=== PATIENT | male | born 1935 | race Caucasian/White ===

== ENCOUNTER 2018-08-29 20:37 | Inpatient (IN) ==
[2018-08-29 21:44] LABS: Basophils % 0.2 % (0.0-0.8); Eosinophils # 0.1 10*3/uL (0.0-0.87); Eosinophils % 1.3 % (0.00-10.9); Hematocrit 21.2 VOL% (42.0-52.0); Hemoglobin 6.8 GM/DL (14.0-18.0); Immature Granulocytes % 0.5 %; Immature Granulocytes Absolute 0.03 #; Lymphocytes # 0.6 10*3/uL (1.4-4.0); Lymphocytes % 8.6 % (21.2-54.2); Mean Corpuscular HGB Conc 32.1 GM/DL (32-36); Mean Corpuscular Hemoglobin 28 PG (27-34); Mean Corpuscular Volume 88.3 FL (87-102); Monocytes # 0.4 10*3/uL (0.11-0.8); Monocytes % 6.4 % (1.7-12.7); Neutrophils # 5.3 10*3/uL (1.4-7.4); Platelet Count 171 T/CUMM (130-400); Red Cell Distribution Width 14.3 % (9.3-17.3); White Blood Count 6.4 T/CUMM (4-12)
[2018-08-29 21:53] LABS: INR 1.3; PT Patient Result 13.5 SECS
[2018-08-29] MEDS ORDERED: DILTIAZEM 25 MG/5 ML VIAL IV ONE ×2 (22:01→22:21)
[2018-08-29] MEDS ORDERED: DILTIAZEM 50 MG/10 ML VIAL IV STA (22:03)
[2018-08-29] MEDS ORDERED: PANTOPRAZOLE 40 MG VIAL IV STA (22:04)
[2018-08-29 22:05] LABS: Alanine Aminotransferase 17 U/L (16-61); Albumin 3.5 G/DL (3.4-5.0); Alkaline Phosphatase 89 U/L (45-117); Aspartate Amino Transferase 11 U/L (0-37); Bilirubin,Total < 0.39 MG/DL (0.2-1.0); Blood Urea Nitrogen 28 MG/DL (7-18); Calcium 8.5 MG/DL (8.5-10.1); Glucose 229 MG/DL (74-106); Osmolality,Calculated 282.1 MOS/KG (273-304); Potassium 4.6 MMOL/L (3.5-5.1); Sodium 135 MMOL/L (136-145); Total Protein 6.6 G/DL (6.4-8.3); Troponin I < 0.015 NG/ML (0.00-0.045)
[2018-08-29 22:17] LABS: Prolactin 14.9 NG/ML
[2018-08-29] MEDS ORDERED: MAGNESIUM SULF RIDER 2 GM in PREMIX 1 EACH IV STA (22:24)
[2018-08-29] MEDS: dilTIAZem Drip 125 MG/125 ML PREMIX IV SCH (22:48)
[2018-08-29 23:19] LABS: Apearance,Urine CLEAR (Clear); Bilirubin,Urine Negative (Negative); Blood, Urine Negative (Negative); Glucose,Urine (UA) 150 mg/dL (Negative); Hyaline Casts,Urine 29 /LPF (0-3); Ketones,Urine Negative (Negative); Mucus,Urine Occasional /LPF (Occasional); Nitrite,Urine Negative (Negative); Protein,Urine Negative; RBC,Urine <1 /HPF (0-4); Urine Color Yellow (Yellow); Urine Specific Gravity 1.016 (1.001-1.035); Urine Urobilinogen < 2.0 EU/DL (0.2-1.0); WBC,Urine <1 /HPF (0-6)
[2018-08-30] MEDS ORDERED: ACETAMINOPHEN 325 MG TABLET PO PRN (00:31)
[2018-08-30] MEDS ORDERED: DEXTROSE 50% 25 GM/50 ML VIAL IV PRN (00:31)
[2018-08-30] MEDS ORDERED: ONDANSETRON 4 MG/2 ML VIAL IV PRN (00:31)
[2018-08-30] MEDS ORDERED: SODIUM CHLORIDE 0.9% 1,000 ML IV PRN (00:31)
[2018-08-30] MEDS ORDERED: GLUCAGON 1 MG VIAL IM PRN (00:31)
[2018-08-30] MEDS ORDERED: MORPHINE 4 MG/1 ML VIAL IV PRN (00:31)
[2018-08-30 02:16] LABS: Basophils % 0.3 % (0.0-0.8); Eosinophils # 0.2 10*3/uL (0.0-0.87); Eosinophils % 2.5 % (0.00-10.9); Hematocrit 22.6 VOL% (42.0-52.0); Hemoglobin 7.3 GM/DL (14.0-18.0); Immature Granulocytes % 0.5 %; Immature Granulocytes Absolute 0.03 #; Lymphocytes # 1.2 10*3/uL (1.4-4.0); Lymphocytes % 18.2 % (21.2-54.2); Mean Corpuscular HGB Conc 32.3 GM/DL (32-36); Mean Corpuscular Hemoglobin 28 PG (27-34); Mean Corpuscular Volume 86.9 FL (87-102); Mean Platelet Volume 10.2 FL (9.6-12.0); Monocytes # 0.6 10*3/uL (0.11-0.8); Monocytes % 8.7 % (1.7-12.7); Neutrophils # 4.5 10*3/uL (1.4-7.4); Neutrophils % 69.8 % (38.7-73.9); Platelet Count 217 T/CUMM (130-400); Red Cell Distribution Width 14.4 % (9.3-17.3); White Blood Count 6.4 T/CUMM (4-12)
[2018-08-30] MEDS: INSULIN REGULAR 100 UNIT/ML SUBCUT SCH ×5 (02:45→23:40)
[2018-08-30] MEDS: SODIUM CHLORIDE 0.9% 1,000 ML IV SCH ×4 (02:46→23:40)
[2018-08-30] MEDS ORDERED: FUROSEMIDE 20 MG/2 ML VIAL IV ONE (05:24)
[2018-08-30] MEDS: LEVOTHYROXINE 50 MCG TABLET PO SCH (06:18)
[2018-08-30 08:28] LABS: Hematocrit 29.7 VOL% (42.0-52.0); Hemoglobin 9.7 GM/DL (14.0-18.0)
[2018-08-30] MEDS ORDERED: CHOLECALCIFEROL 1,000 UNIT TABLET PO SCH (09:00)
[2018-08-30] MEDS ORDERED: DOCUSATE SODIUM 100 MG CAPSULE PO SCH (09:00)
[2018-08-30 09:05] LABS: Albumin 3.3 G/DL (3.4-5.0); Bilirubin,Total 0.4 MG/DL (0.2-1.0); Calcium 8.1 MG/DL (8.5-10.1); Osmolality,Calculated 280.7 MOS/KG (273-304); Risk Ratio 2.39; Total Protein 6.5 G/DL (6.4-8.3); VLDL CHOLESTEROL 32.8 MG/DL
[2018-08-30] MEDS: PANTOPRAZOLE 40 MG VIAL IV SCH (09:59)
[2018-08-30] MEDS: dilTIAZem Drip 125 MG/125 ML PREMIX IV SCH ×2 (12:10→22:13)
[2018-08-30] MEDS: FUROSEMIDE 20 MG TABLET PO SCH (13:26)
[2018-08-30] MEDS: FLUTICASONE 50 MCG NASAL SPRAY 16 GM BOTTLE BOTH NARES SCH (13:26)
[2018-08-30] MEDS: MULTIVITAMIN (CENTRUM) TABLET PO SCH (13:26)
[2018-08-30] MEDS: OMEGA 3 ACID ETHYL ESTERS 1 GM CAPSULE PO SCH (13:26)
[2018-08-30] MEDS: ATORVASTATIN 40 MG TABLET PO SCH (13:26)
[2018-08-30] MEDS: LATANOPROST 0.005% OPH SOLN 2.5 ML BOTTLE BOTH EYES SCH (20:50)
[2018-08-31] MEDS: INSULIN REGULAR 100 UNIT/ML SUBCUT SCH ×4 (05:54→23:58)
[2018-08-31] MEDS: LEVOTHYROXINE 50 MCG TABLET PO SCH (05:54)
[2018-08-31] MEDS: SODIUM CHLORIDE 0.9% 1,000 ML IV SCH ×2 (09:49→22:01)
[2018-08-31] MEDS: MULTIVITAMIN (CENTRUM) TABLET PO SCH (09:49)
[2018-08-31] MEDS: FUROSEMIDE 20 MG TABLET PO SCH (09:51)
[2018-08-31] MEDS: ATORVASTATIN 40 MG TABLET PO SCH (09:51)
[2018-08-31] MEDS: OMEGA 3 ACID ETHYL ESTERS 1 GM CAPSULE PO SCH (09:52)
[2018-08-31] MEDS: PANTOPRAZOLE 40 MG VIAL IV SCH (09:52)
[2018-08-31] MEDS: FLUTICASONE 50 MCG NASAL SPRAY 16 GM BOTTLE BOTH NARES SCH (10:06)
[2018-08-31] MEDS: LATANOPROST 0.005% OPH SOLN 2.5 ML BOTTLE BOTH EYES SCH ×2 (10:21→22:00)
[2018-08-31] MEDS: dilTIAZem Drip 125 MG/125 ML PREMIX IV SCH (11:33)
[2018-08-31] MEDS ORDERED: LORazepam 2 MG/1 ML VIAL IV PRN (16:40)
[2018-08-31] MEDS ORDERED: CLORAZEPATE 7.5 MG TABLET PO SCH (21:00)
[2018-09-01] MEDS: dilTIAZem Drip 125 MG/125 ML PREMIX IV SCH (01:21)
[2018-09-01 04:41] LABS: Basophils % 0.4 % (0.0-0.8); Eosinophils # 0.3 10*3/uL (0.0-0.87); Hematocrit 27.6 VOL% (42.0-52.0); Hemoglobin 8.7 GM/DL (14.0-18.0); Immature Granulocytes % 0.4 %; Immature Granulocytes Absolute 0.02 #; Lymphocytes # 0.9 10*3/uL (1.4-4.0); Lymphocytes % 15.7 % (21.2-54.2); Mean Corpuscular HGB Conc 31.5 GM/DL (32-36); Mean Corpuscular Hemoglobin 28 PG (27-34); Mean Corpuscular Volume 87.3 FL (87-102); Mean Platelet Volume 10.3 FL (9.6-12.0); Monocytes # 0.6 10*3/uL (0.11-0.8); Monocytes % 10.5 % (1.7-12.7); Neutrophils # 3.8 10*3/uL (1.4-7.4); Platelet Count 179 T/CUMM (130-400); Red Blood Count 3.16 MC/CUMM (3.8-5.5); White Blood Count 5.6 T/CUMM (4-12)
[2018-09-01 05:08] LABS: Calcium 8.1 MG/DL (8.5-10.1); Osmolality,Calculated 278.5 MOS/KG (273-304); Potassium 3.9 MMOL/L (3.5-5.1)
[2018-09-01] MEDS: INSULIN REGULAR 100 UNIT/ML SUBCUT SCH ×3 (06:20→17:33)
[2018-09-01] MEDS: LEVOTHYROXINE 50 MCG TABLET PO SCH (06:39)
[2018-09-01] MEDS: SODIUM CHLORIDE 0.9% 1,000 ML IV SCH (08:46)
[2018-09-01] MEDS: FUROSEMIDE 20 MG TABLET PO SCH (08:47)
[2018-09-01] MEDS: ATORVASTATIN 40 MG TABLET PO SCH (08:47)
[2018-09-01] MEDS: OMEGA 3 ACID ETHYL ESTERS 1 GM CAPSULE PO SCH (08:47)
[2018-09-01] MEDS: MULTIVITAMIN (CENTRUM) TABLET PO SCH (08:47)
[2018-09-01] MEDS: METOPROLOL SUCCINATE XL 100 MG TABLET PO SCH (08:48)
[2018-09-01] MEDS: PANTOPRAZOLE 40 MG VIAL IV SCH (08:49)
[2018-09-01] MEDS: FLUTICASONE 50 MCG NASAL SPRAY 16 GM BOTTLE BOTH NARES SCH (08:52)
[2018-09-01] MEDS ORDERED: POLYETHYLENE GLYCOL POWDER 255 GM BOTTLE PO ONE (15:00)
[2018-09-01] MEDS: LATANOPROST 0.005% OPH SOLN 2.5 ML BOTTLE BOTH EYES SCH (21:04)
[2018-09-02] MEDS: INSULIN REGULAR 100 UNIT/ML SUBCUT SCH ×5 (00:30→23:45)
[2018-09-02] MEDS ORDERED: MAGNESIUM CITRATE 300 ML BOTTLE PO ONE (05:00)
[2018-09-02] MEDS: LEVOTHYROXINE 50 MCG TABLET PO SCH (05:55)
[2018-09-02] MEDS: ATORVASTATIN 40 MG TABLET PO SCH (08:25)
[2018-09-02] MEDS: OMEGA 3 ACID ETHYL ESTERS 1 GM CAPSULE PO SCH (08:25)
[2018-09-02] MEDS: METOPROLOL SUCCINATE XL 100 MG TABLET PO SCH (08:25)
[2018-09-02] MEDS: MULTIVITAMIN (CENTRUM) TABLET PO SCH (08:25)
[2018-09-02] MEDS: FUROSEMIDE 20 MG TABLET PO SCH (08:26)
[2018-09-02] MEDS: PANTOPRAZOLE 40 MG VIAL IV SCH (08:27)
[2018-09-02] MEDS: FLUTICASONE 50 MCG NASAL SPRAY 16 GM BOTTLE BOTH NARES SCH (08:30)
[2018-09-02] MEDS ORDERED: LIDOCAINE 100 MG/5 ML SYRINGE ONE ×2 (09:00→11:59)
[2018-09-02] MEDS ORDERED: PHENYLEPHRINE 1 MG/10 ML SYRINGE IV ONE (09:00)
[2018-09-02] MEDS ORDERED: PROPOFOL 200 MG/20 ML VIAL IV ONE ×2 (09:00→11:59)
[2018-09-02] MEDS: SODIUM CHLORIDE 0.9% 1,000 ML IV SCH ×2 (09:55→20:54)
[2018-09-02 11:16] LABS: Hematocrit 32.6 VOL% (42.0-52.0); Hemoglobin 10.2 GM/DL (14.0-18.0)
[2018-09-02] MEDS: LATANOPROST 0.005% OPH SOLN 2.5 ML BOTTLE BOTH EYES SCH (20:53)
[2018-09-03] MEDS: INSULIN REGULAR 100 UNIT/ML SUBCUT SCH (05:07)
[2018-09-03] MEDS: LEVOTHYROXINE 50 MCG TABLET PO SCH (05:35)
[2018-09-03 08:15] VITALS: BP 125/79
[2018-09-03] MEDS: FLUTICASONE 50 MCG NASAL SPRAY 16 GM BOTTLE BOTH NARES SCH (08:15)
[2018-09-03] MEDS: ATORVASTATIN 40 MG TABLET PO SCH (08:15)
[2018-09-03] MEDS: OMEGA 3 ACID ETHYL ESTERS 1 GM CAPSULE PO SCH (08:15)
[2018-09-03] MEDS: FUROSEMIDE 20 MG TABLET PO SCH (08:15)
[2018-09-03] MEDS: METOPROLOL SUCCINATE XL 100 MG TABLET PO SCH (08:15)
[2018-09-03] MEDS: MULTIVITAMIN (CENTRUM) TABLET PO SCH (08:15)
[2018-09-03] MEDS: PANTOPRAZOLE 40 MG VIAL IV SCH (08:16)
[2018-09-03] MEDS: SODIUM CHLORIDE 0.9% 1,000 ML IV SCH (10:49)
== END 2018-09-03 10:59 | disposition home or self-care (01) | DRG 813 ==
LOC: EDUNIT# → EDBD → N.ED 20:37 → N.EDINP 23:10 → N.ICU 08-30 00:56 → N.TELES 09-01 15:27
PROVIDERS: ADMIT Family Medicine; ATTEND Family Medicine
PROC: COLSIRP (2018-09-02 11:50)

== ENCOUNTER 2019-10-05 11:18 | Observation (INO) ==
[2019-10-05] MEDS ORDERED: GLUCAGON 1 MG VIAL IM PRN (12:32)
[2019-10-05] MEDS ORDERED: DEXTROSE 10% 25 GM/250 ML BAG IV PRN (12:32)
[2019-10-05] MEDS ORDERED: ACETAMINOPHEN 325 MG TABLET PO PRN (12:32)
[2019-10-05] MEDS ORDERED: ONDANSETRON 4 MG/2 ML VIAL IV PRN (12:32)
[2019-10-05] MEDS ORDERED: MECLIZINE 25 MG TABLET PO PRN (12:36)
[2019-10-05 13:04] LABS: Basophils % 0.5 % (0.0-0.8); Eosinophils # 0.1 10*3/uL (0.0-0.87); Hematocrit 39.1 VOL% (42.0-52.0); Hemoglobin 13.4 GM/DL (14.0-18.0); Immature Granulocytes % 0.2 %; Immature Granulocytes Absolute 0.01 #; Lymphocytes # 1.1 10*3/uL (1.4-4.0); Lymphocytes % 18.2 % (21.2-54.2); Mean Corpuscular HGB Conc 34.3 GM/DL (32-36); Mean Corpuscular Volume 93.8 FL (87-102); Mean Platelet Volume 10.7 FL (9.6-12.0); Monocytes % 7.3 % (1.7-12.7); Neutrophils % 72.8 % (38.7-73.9); Platelet Count 186 T/CUMM (130-400); Red Blood Count 4.17 MC/CUMM (3.8-5.5); Red Cell Distribution Width 13.6 % (9.3-17.3); White Blood Count 5.8 T/CUMM (4-12)
[2019-10-05 13:18] LABS: Osmolality,Calculated 281.1 MOS/KG (273-304)
[2019-10-05] MEDS: SODIUM CHLORIDE 0.45% 1,000 ML IV SCH (14:56)
[2019-10-05] MEDS: POTASSIUM CHLORIDE 8 MEQ CAPSULE PO SCH ×2 (16:14→21:16)
[2019-10-05] MEDS: FERROUS SULFATE 325 MG TABLET PO SCH (16:14)
[2019-10-05] MEDS: INSULIN LISPRO 100 UNIT/ML SUBCUT SCH ×2 (16:17→21:25)
[2019-10-05] MEDS: METOPROLOL SUCCINATE XL 100 MG TABLET PO SCH (17:23)
[2019-10-05] MEDS: metFORMIN 500 MG TABLET PO SCH (21:16)
[2019-10-05] MEDS: POTASSIUM GLUCONATE 500 MG TABLET PO SCH (21:16)
[2019-10-05] MEDS: LATANOPROST 0.005% OPH SOLN 2.5 ML BOTTLE BOTH EYES SCH (21:17)
[2019-10-05] MEDS: DOCUSATE SODIUM 100 MG CAPSULE PO SCH (21:21)
[2019-10-06] MEDS ORDERED: DIAZEPAM 5 MG TABLET PO PRN (00:46)
[2019-10-06 06:07] LABS: Calcium 6.7 MG/DL (8.5-10.1)
[2019-10-06 06:09] LABS: Risk Ratio 2.98; VLDL CHOLESTEROL 22.8 MG/DL
[2019-10-06] MEDS ORDERED: MAGNESIUM SULF RIDER 2 GM in PREMIX 1 EACH IV PRN (07:24)
[2019-10-06] MEDS: INSULIN LISPRO 100 UNIT/ML SUBCUT SCH ×4 (07:40→22:02)
[2019-10-06 08:03] LABS: Parathyroid Hormone Intact 31.5 PG/ML (18.4-80.1)
[2019-10-06] MEDS: metFORMIN 500 MG TABLET PO SCH ×2 (09:20→20:18)
[2019-10-06] MEDS: FERROUS SULFATE 325 MG TABLET PO SCH ×2 (09:20→17:01)
[2019-10-06] MEDS: RIVAROXABAN 20 MG TABLET PO SCH (09:20)
[2019-10-06] MEDS: LOSARTAN 50 MG TABLET PO SCH (09:21)
[2019-10-06] MEDS: MULTIVITAMIN (CENTRUM) TABLET PO SCH (09:21)
[2019-10-06] MEDS: METOPROLOL SUCCINATE XL 100 MG TABLET PO SCH (09:21)
[2019-10-06] MEDS: DOCUSATE SODIUM 100 MG CAPSULE PO SCH ×2 (09:21→20:19)
[2019-10-06] MEDS: LEVOTHYROXINE 50 MCG TABLET PO SCH (09:21)
[2019-10-06] MEDS: PIOGLITAZONE 15 MG TABLET PO SCH (09:21)
[2019-10-06] MEDS: FUROSEMIDE 20 MG TABLET PO SCH (09:21)
[2019-10-06] MEDS: CHOLECALCIFEROL 1,000 UNIT TABLET PO SCH (09:22)
[2019-10-06] MEDS: POTASSIUM GLUCONATE 500 MG TABLET PO SCH ×2 (09:22→20:18)
[2019-10-06] MEDS: ATORVASTATIN 40 MG TABLET PO SCH (09:22)
[2019-10-06] MEDS: PANTOPRAZOLE 40 MG TABLET PO SCH (09:22)
[2019-10-06] MEDS: POTASSIUM CHLORIDE 8 MEQ CAPSULE PO SCH ×3 (09:22→20:18)
[2019-10-06] MEDS: MAGNESIUM SULF RIDER 4 GM in PREMIX 1 EACH IV PRN (09:29)
[2019-10-06] MEDS: FLUTICASONE 50 MCG NASAL SPRAY 16 GM BOTTLE BOTH NARES SCH (09:52)
[2019-10-06] MEDS: POTASSIUM CHLORIDE RIDER 10 MEQ in PREMIX 1 EACH IV PRN ×4 (17:01→20:21)
[2019-10-06] MEDS: SODIUM CHLORIDE 0.45% 1,000 ML IV SCH (17:02)
[2019-10-06] MEDS: CALCIUM CARBONATE CHEW 500 MG TABLET PO SCH (20:19)
[2019-10-06] MEDS: LATANOPROST 0.005% OPH SOLN 2.5 ML BOTTLE BOTH EYES SCH (20:19)
[2019-10-07 02:02] LABS: Calcium 6.9 MG/DL (8.5-10.1); Osmolality,Calculated 276.5 MOS/KG (273-304)
[2019-10-07] MEDS: LEVOTHYROXINE 50 MCG TABLET PO SCH (06:09)
[2019-10-07] MEDS: INSULIN LISPRO 100 UNIT/ML SUBCUT SCH ×4 (07:04→21:57)
[2019-10-07] MEDS: CALCIUM CARBONATE CHEW 500 MG TABLET PO SCH ×2 (08:31→21:56)
[2019-10-07] MEDS: RIVAROXABAN 20 MG TABLET PO SCH (08:31)
[2019-10-07] MEDS: POTASSIUM GLUCONATE 500 MG TABLET PO SCH ×2 (08:31→21:57)
[2019-10-07] MEDS: LOSARTAN 50 MG TABLET PO SCH (08:32)
[2019-10-07] MEDS: MULTIVITAMIN (CENTRUM) TABLET PO SCH (08:32)
[2019-10-07] MEDS: ATORVASTATIN 40 MG TABLET PO SCH (08:32)
[2019-10-07] MEDS: PIOGLITAZONE 15 MG TABLET PO SCH (08:32)
[2019-10-07] MEDS: METOPROLOL SUCCINATE XL 100 MG TABLET PO SCH (08:32)
[2019-10-07] MEDS: PANTOPRAZOLE 40 MG TABLET PO SCH (08:32)
[2019-10-07] MEDS: POTASSIUM CHLORIDE 8 MEQ CAPSULE PO SCH ×3 (08:32→21:57)
[2019-10-07] MEDS: FUROSEMIDE 20 MG TABLET PO SCH (08:32)
[2019-10-07] MEDS: FERROUS SULFATE 325 MG TABLET PO SCH ×2 (08:32→16:58)
[2019-10-07] MEDS: metFORMIN 500 MG TABLET PO SCH ×2 (08:33→21:57)
[2019-10-07] MEDS: DOCUSATE SODIUM 100 MG CAPSULE PO SCH ×2 (08:33→21:57)
[2019-10-07] MEDS: FLUTICASONE 50 MCG NASAL SPRAY 16 GM BOTTLE BOTH NARES SCH (08:33)
[2019-10-07] MEDS: CHOLECALCIFEROL 1,000 UNIT TABLET PO SCH (08:33)
[2019-10-07] MEDS: MAGNESIUM SULF RIDER 4 GM in PREMIX 1 EACH IV PRN (08:39)
[2019-10-07] MEDS: cefTRIAXone 1,000 MG in SYRINGE 1 EACH IV SCH (11:11)
[2019-10-07] MEDS: methylPREDNISolone SOD SUC 40 MG/1 ML VIAL IV SCH ×2 (13:12→21:57)
[2019-10-07] MEDS: SODIUM CHLORIDE 0.45% 1,000 ML IV SCH (16:57)
[2019-10-07] MEDS: LATANOPROST 0.005% OPH SOLN 2.5 ML BOTTLE BOTH EYES SCH (21:57)
[2019-10-08 05:43] LABS: Basophils % 0.1 % (0.0-0.8); Hematocrit 43.4 VOL% (42.0-52.0); Hemoglobin 14.4 GM/DL (14.0-18.0); Immature Granulocytes % 0.4 %; Immature Granulocytes Absolute 0.03 #; Lymphocytes # 0.7 10*3/uL (1.4-4.0); Lymphocytes % 8.7 % (21.2-54.2); Mean Corpuscular HGB Conc 33.2 GM/DL (32-36); Mean Corpuscular Volume 95.2 FL (87-102); Mean Platelet Volume 11.4 FL (9.6-12.0); Monocytes % 2.2 % (1.7-12.7); Neutrophils % 88.6 % (38.7-73.9); Platelet Count 235 T/CUMM (130-400); Red Blood Count 4.56 MC/CUMM (3.8-5.5); Red Cell Distribution Width 13.4 % (9.3-17.3); White Blood Count 7.4 T/CUMM (4-12)
[2019-10-08] MEDS: LEVOTHYROXINE 50 MCG TABLET PO SCH (05:55)
[2019-10-08 06:14] LABS: Calcium 7.7 MG/DL (8.5-10.1); Osmolality,Calculated 275.8 MOS/KG (273-304)
[2019-10-08] MEDS: POTASSIUM GLUCONATE 500 MG TABLET PO SCH (09:07)
[2019-10-08] MEDS: LOSARTAN 50 MG TABLET PO SCH (09:07)
[2019-10-08] MEDS: METOPROLOL SUCCINATE XL 100 MG TABLET PO SCH (09:08)
[2019-10-08] MEDS: FERROUS SULFATE 325 MG TABLET PO SCH (09:08)
[2019-10-08] MEDS: DOCUSATE SODIUM 100 MG CAPSULE PO SCH (09:08)
[2019-10-08] MEDS: FUROSEMIDE 20 MG TABLET PO SCH (09:08)
[2019-10-08] MEDS: PANTOPRAZOLE 40 MG TABLET PO SCH (09:08)
[2019-10-08] MEDS: metFORMIN 500 MG TABLET PO SCH (09:08)
[2019-10-08] MEDS: PIOGLITAZONE 15 MG TABLET PO SCH (09:08)
[2019-10-08] MEDS: CHOLECALCIFEROL 1,000 UNIT TABLET PO SCH (09:08)
[2019-10-08] MEDS: ATORVASTATIN 40 MG TABLET PO SCH (09:09)
[2019-10-08] MEDS: RIVAROXABAN 20 MG TABLET PO SCH (09:09)
[2019-10-08] MEDS: MULTIVITAMIN (CENTRUM) TABLET PO SCH (09:09)
[2019-10-08] MEDS: POTASSIUM CHLORIDE 8 MEQ CAPSULE PO SCH (09:09)
[2019-10-08] MEDS: CALCIUM CARBONATE CHEW 500 MG TABLET PO SCH (09:09)
[2019-10-08] MEDS: cefTRIAXone 1,000 MG in SYRINGE 1 EACH IV SCH (09:15)
[2019-10-08] MEDS: FLUTICASONE 50 MCG NASAL SPRAY 16 GM BOTTLE BOTH NARES SCH (09:16)
[2019-10-08] MEDS: INSULIN LISPRO 100 UNIT/ML SUBCUT SCH ×2 (09:39→11:37)
[2019-10-08] MEDS ORDERED: CEFDINIR 300 MG CAPSULE PO SCH (11:00)
[2019-10-08 11:57] VITALS: BP 146/99
== END 2019-10-08 12:32 | disposition home or self-care (01) ==
LOC: N.ED 11:18 → INTOOBSV 12:54 → N.EDINP 12:54 → N.2E 14:27
PROVIDERS: ADMIT Family Medicine; ATTEND Family Medicine

== ENCOUNTER 2020-11-14 01:42 | Observation (INO) ==
[2020-11-14 02:10] LABS: Basophils % 0.6 % (0.0-0.8); Eosinophils # 0.4 10*3/uL (0.0-0.87); Eosinophils % 5.4 % (0.00-10.9); Hematocrit 38.8 VOL% (42.0-52.0); Hemoglobin 12.9 GM/DL (14.0-18.0); Immature Granulocytes % 0.3 %; Immature Granulocytes Absolute 0.02 #; Lymphocytes # 1.2 10*3/uL (1.4-4.0); Lymphocytes % 16.6 % (21.2-54.2); Mean Corpuscular HGB Conc 33.2 GM/DL (32-36); Mean Corpuscular Volume 92.6 FL (87-102); Neutrophils % 69.1 % (38.7-73.9); Platelet Count 251 T/CUMM (130-400); Red Blood Count 4.19 MC/CUMM (3.8-5.5); Red Cell Distribution Width 13.7 % (9.3-17.3); White Blood Count 7.2 T/CUMM (4-12)
[2020-11-14] MEDS ORDERED: ASPIRIN 325 MG TABLET PO STA (02:32)
[2020-11-14] MEDS ORDERED: NITROGLYCERIN SL 0.4 MG TABLET SL STA ×2 (02:32→03:53)
[2020-11-14 02:56] LABS: Albumin 3.9 G/DL (3.4-5.0); Bilirubin,Total 0.5 MG/DL (0.2-1.0); Calcium 6.7 MG/DL (8.5-10.1); Potassium 2.9 MMOL/L (3.5-5.1); Total Protein 7.5 G/DL (6.4-8.3)
[2020-11-14] MEDS ORDERED: POTASSIUM CHLORIDE 20 MEQ/15 ML UDCUP PO ONE (03:43)
[2020-11-14] MEDS ORDERED: MORPHINE 4 MG/1 ML VIAL IV STA (03:53)
[2020-11-14] MEDS ORDERED: ONDANSETRON 4 MG/2 ML VIAL IV ONE (03:53)
[2020-11-14] MEDS ORDERED: ONDANSETRON 4 MG/2 ML VIAL IV PRN (03:57)
[2020-11-14] MEDS ORDERED: ASPIRIN CHEW 81 MG TABLET PO SCH (04:00)
[2020-11-14] MEDS ORDERED: DILTIAZEM 50 MG/10 ML VIAL IV STA (04:43)
[2020-11-14] MEDS ORDERED: PANTOPRAZOLE 40 MG TABLET PO SCH ×2 (09:00→21:00)
[2020-11-14 12:29] VITALS: BP 130/83
[2020-11-14] MEDS ORDERED: LOSARTAN 50 MG TABLET PO SCH (13:00)
[2020-11-14] MEDS ORDERED: METOPROLOL SUCCINATE XL 100 MG TABLET PO SCH (13:00)
[2020-11-14] MEDS ORDERED: ATORVASTATIN 40 MG TABLET PO SCH (13:00)
[2020-11-14] MEDS ORDERED: FUROSEMIDE 20 MG TABLET PO SCH (13:00)
[2020-11-15] MEDS ORDERED: RIVAROXABAN 20 MG TABLET PO SCH (09:00)
== END 2020-11-14 15:17 | disposition home or self-care (01) ==
LOC: N.ED 01:42 → N.EDINP 01:42 → N.TELES 05:49
PROVIDERS: ADMIT Family Medicine; ATTEND Family Medicine

== ENCOUNTER 2022-01-18 00:31 | Observation (INO) ==
[2022-01-18] MEDS ORDERED: ALBUTEROL/IPRATROPIUM 3 ML NEB RESP TX STA (01:28)
[2022-01-18] MEDS ORDERED: methylPREDNISolone SOD SUC 125 MG/2 ML VIAL IV STA (01:28)
[2022-01-18] MEDS ORDERED: MORPHINE 2 MG/1 ML SYRINGE IV STA (01:28)
[2022-01-18] MEDS ORDERED: ONDANSETRON 4 MG/2 ML VIAL IV STA (01:28)
[2022-01-18] MEDS ORDERED: FUROSEMIDE 100 MG/10 ML VIAL IV STA (01:28)
[2022-01-18] MEDS ORDERED: cefTRIAXone 1,000 MG in SODIUM CHLORIDE 0.9% 100 ML IV STA (01:30)
[2022-01-18 01:36] LABS: Basophils # 0.1 10*3/uL (0.0-0.2); Basophils % 0.7 % (0.0-0.8); Eosinophils # 0.8 10*3/uL (0.0-0.87); Eosinophils % 10.8 % (0.00-10.9); Hematocrit 30.4 VOL% (42.0-52.0); Immature Granulocytes % 0.4 %; Immature Granulocytes Absolute 0.03 #; Lymphocytes # 1.1 10*3/uL (1.4-4.0); Lymphocytes % 14.6 % (21.2-54.2); Mean Corpuscular HGB Conc 32.9 GM/DL (32-36); Mean Corpuscular Volume 95.6 FL (87-102); Monocytes % 7.3 % (1.7-12.7); Neutrophils % 66.2 % (38.7-73.9); Platelet Count 248 T/CUMM (130-400); Red Blood Count 3.18 MC/CUMM (3.8-5.5); Red Cell Distribution Width 14.3 % (9.3-17.3); White Blood Count 7.2 T/CUMM (4-12)
[2022-01-18 01:47] LABS: INR 1.2; Partial Thromboplastin Time 30.8 SECS (23.8-32.1)
[2022-01-18] MEDS ORDERED: MAGNESIUM SULF RIDER 2 GM/50 ML PREMIX IV STA (02:11)
[2022-01-18 02:20] LABS: Albumin 3.7 G/DL (3.4-5.0); Bilirubin,Total 0.6 MG/DL (0.20-1.00); Calcium 8.5 MG/DL (8.5-10.1); Potassium 3.7 MMOL/L (3.5-5.1); Total Protein 6.8 G/DL (6.4-8.2)
[2022-01-18 02:53] LABS: Bilirubin,Urine Negative (Negative); Blood, Urine Negative (Negative); Glucose,Urine (UA) Negative (Negative); Ketones,Urine Negative (Negative); Nitrite,Urine Negative (Negative); Protein,Urine Negative (Negative); Urine Appearance Clear (Clear); Urine Color Yellow (Yellow); Urine Urobilinogen 0.2 eU/dL (<2.0); Urine pH 5.5 (4.5-8.0)
[2022-01-18] MEDS ORDERED: GLUCAGON 1 MG VIAL IM PRN (04:37)
[2022-01-18] MEDS ORDERED: MORPHINE 2 MG/1 ML SYRINGE IV PRN (04:37)
[2022-01-18] MEDS ORDERED: ONDANSETRON 4 MG/2 ML VIAL IV PRN (04:37)
[2022-01-18] MEDS ORDERED: ACETAMINOPHEN 325 MG TABLET PO PRN (04:37)
[2022-01-18] MEDS ORDERED: DEXTROSE 10% 250 ML BAG IV PRN (04:41)
[2022-01-18] MEDS: SODIUM CHLORIDE 0.9% 1,000 ML IV SCH (05:31)
[2022-01-18] MEDS: INSULIN REGULAR 100 UNIT/ML SUBCUT SCH ×3 (05:58→17:40)
[2022-01-18] MEDS ORDERED: CHOLECALCIFEROL 1,000 UNIT TABLET PO SCH (09:00)
[2022-01-18] MEDS ORDERED: PANTOPRAZOLE 40 MG VIAL IV SCH (09:00)
[2022-01-18] MEDS ORDERED: METOPROLOL SUCCINATE 200 MG PO SCH (09:00)
[2022-01-18] MEDS ORDERED: CALCIUM CARBONATE CHEW 500 MG TABLET PO SCH (09:00)
[2022-01-18] MEDS ORDERED: LOSARTAN 50 MG TABLET PO SCH (09:00)
[2022-01-18] MEDS ORDERED: metFORMIN 500 MG TABLET PO SCH (09:00)
[2022-01-18] MEDS: ALBUTEROL/IPRATROPIUM 3 ML NEB RESP TX SCH ×5 (09:22→23:52)
[2022-01-18] MEDS: FUROSEMIDE 40 MG/4 ML VIAL IV SCH ×2 (09:36→16:34)
[2022-01-18] MEDS: DOCUSATE SODIUM 100 MG CAPSULE PO SCH ×2 (09:37→21:10)
[2022-01-18 09:39] LABS: Calcium 9.4 MG/DL (8.5-10.1); Osmolality,Calculated 276.2 MOS/KG (273-304); Potassium 4.4 MMOL/L (3.5-5.1)
[2022-01-18] MEDS: PIOGLITAZONE 15 MG TABLET PO SCH (10:44)
[2022-01-18] MEDS: RIVAROXABAN 20 MG TABLET PO SCH (13:32)
[2022-01-18] MEDS: methylPREDNISolone SOD SUC 40 MG/1 ML VIAL IV SCH (14:48)
[2022-01-18] MEDS ORDERED: LATANOPROST 0.005% OPH SOLN 2.5 ML BOTTLE BOTH EYES SCH (21:00)
[2022-01-18] MEDS: POTASSIUM CHLORIDE 10 MEQ TABLET PO SCH (21:10)
[2022-01-18] MEDS: FERROUS SULFATE 325 MG TABLET PO SCH (21:10)
[2022-01-18] MEDS: LATANOPROST 0.005% OPH SOLN 2.5 ML BOTTLE BOTH EYES SCH (21:11)
[2022-01-19] MEDS: INSULIN REGULAR 100 UNIT/ML SUBCUT SCH ×4 (00:20→18:01)
[2022-01-19] MEDS: ALBUTEROL/IPRATROPIUM 3 ML NEB RESP TX SCH ×5 (03:30→19:55)
[2022-01-19 05:29] LABS: Basophils % 0.1 % (0.0-0.8); Hemoglobin 10.4 GM/DL (14.0-18.0); Immature Granulocytes % 0.4 %; Immature Granulocytes Absolute 0.05 #; Lymphocytes # 0.5 10*3/uL (1.4-4.0); Lymphocytes % 3.9 % (21.2-54.2); Mean Corpuscular HGB Conc 32.5 GM/DL (32-36); Mean Platelet Volume 10.2 FL (9.6-12.0); Monocytes % 6.6 % (1.7-12.7); Platelet Count 242 T/CUMM (130-400); White Blood Count 12.2 T/CUMM (4-12)
[2022-01-19 05:48] LABS: Albumin 3.4 G/DL (3.4-5.0); Bilirubin,Total 0.4 MG/DL (0.20-1.00); Calcium 8.9 MG/DL (8.5-10.1); Osmolality,Calculated 275.4 MOS/KG (273-304); Potassium 3.8 MMOL/L (3.5-5.1); Total Protein 7.3 G/DL (6.4-8.2)
[2022-01-19] MEDS: methylPREDNISolone SOD SUC 40 MG/1 ML VIAL IV SCH ×2 (05:57→18:01)
[2022-01-19] MEDS: LEVOTHYROXINE 50 MCG TABLET PO SCH (05:58)
[2022-01-19 06:07] LABS: Hypochromia Slight; Lymphocytes 3 % (20-55); Microcytosis 1+; Ovalocytes Slight; Segmented Neutrophils 91 % (50-85); Total Cells Counted 100
[2022-01-19 06:08] LABS: Platelet Estimate Normal
[2022-01-19] MEDS ORDERED: LEVOTHYROXINE 50 MCG TABLET PO SCH (07:00)
[2022-01-19] MEDS: SODIUM CHLORIDE 0.9% 1,000 ML IV SCH (07:58)
[2022-01-19] MEDS: FUROSEMIDE 40 MG TABLET PO SCH (08:48)
[2022-01-19] MEDS: DOCUSATE SODIUM 100 MG CAPSULE PO SCH ×2 (08:48→21:33)
[2022-01-19] MEDS: ATORVASTATIN 40 MG TABLET PO SCH (08:48)
[2022-01-19] MEDS: PIOGLITAZONE 15 MG TABLET PO SCH (08:48)
[2022-01-19] MEDS: FERROUS SULFATE 325 MG TABLET PO SCH ×2 (08:48→21:33)
[2022-01-19] MEDS: POTASSIUM CHLORIDE 10 MEQ TABLET PO SCH ×2 (08:48→21:33)
[2022-01-19] MEDS: FLUTICASONE 50 MCG NASAL SPRAY 16 GM BOTTLE BOTH NARES SCH (08:49)
[2022-01-19] MEDS: RIVAROXABAN 20 MG TABLET PO SCH (08:49)
[2022-01-19] MEDS: cefTRIAXone 1,000 MG in SODIUM CHLORIDE 0.9% 100 ML IV SCH (08:49)
[2022-01-19] MEDS: FUROSEMIDE 40 MG/4 ML VIAL IV SCH (09:06)
[2022-01-19] MEDS ORDERED: METOPROLOL SUCCINATE XL 25 MG TABLET PO SCH (11:30)
[2022-01-19] MEDS: METOPROLOL SUCCINATE XL 100 MG TABLET PO SCH (12:04)
[2022-01-19] MEDS ORDERED: METOPROLOL TARTRATE 5 MG/5 ML VIAL IV ONE (14:00)
[2022-01-19] MEDS: LATANOPROST 0.005% OPH SOLN 2.5 ML BOTTLE BOTH EYES SCH (22:33)
[2022-01-20] MEDS: ALBUTEROL/IPRATROPIUM 3 ML NEB RESP TX SCH ×3 (00:13→07:46)
[2022-01-20] MEDS: INSULIN REGULAR 100 UNIT/ML SUBCUT SCH ×4 (00:45→17:44)
[2022-01-20 05:15] LABS: Basophils % 0.1 % (0.0-0.8); Hematocrit 34.3 VOL% (42.0-52.0); Hemoglobin 11.1 GM/DL (14.0-18.0); Immature Granulocytes Absolute 0.12 #; Lymphocytes # 0.6 10*3/uL (1.4-4.0); Lymphocytes % 4.6 % (21.2-54.2); Mean Corpuscular HGB Conc 32.4 GM/DL (32-36); Mean Corpuscular Volume 97.7 FL (87-102); Monocytes % 5.5 % (1.7-12.7); Neutrophils % 88.8 % (38.7-73.9); Platelet Count 268 T/CUMM (130-400); Red Blood Count 3.51 MC/CUMM (3.8-5.5); Red Cell Distribution Width 14.6 % (9.3-17.3)
[2022-01-20 05:38] LABS: Calcium 8.8 MG/DL (8.5-10.1); Osmolality,Calculated 280.1 MOS/KG (273-304); Potassium 4.4 MMOL/L (3.5-5.1)
[2022-01-20] MEDS: methylPREDNISolone SOD SUC 40 MG/1 ML VIAL IV SCH ×2 (06:14→17:44)
[2022-01-20] MEDS: FLUTICASONE 50 MCG NASAL SPRAY 16 GM BOTTLE BOTH NARES SCH (09:46)
[2022-01-20] MEDS: METOPROLOL SUCCINATE XL 100 MG TABLET PO SCH (09:47)
[2022-01-20] MEDS: POTASSIUM CHLORIDE 10 MEQ TABLET PO SCH ×2 (09:47→20:21)
[2022-01-20] MEDS: FUROSEMIDE 40 MG TABLET PO SCH (09:48)
[2022-01-20] MEDS: DILTIAZEM CD 120 MG CAPSULE PO SCH (09:48)
[2022-01-20] MEDS: PIOGLITAZONE 15 MG TABLET PO SCH (09:48)
[2022-01-20] MEDS: DOCUSATE SODIUM 100 MG CAPSULE PO SCH ×2 (09:49→20:21)
[2022-01-20] MEDS: FERROUS SULFATE 325 MG TABLET PO SCH ×2 (09:49→20:21)
[2022-01-20] MEDS: ATORVASTATIN 40 MG TABLET PO SCH (09:49)
[2022-01-20] MEDS: RIVAROXABAN 20 MG TABLET PO SCH (09:50)
[2022-01-20] MEDS: cefTRIAXone 1,000 MG in SODIUM CHLORIDE 0.9% 100 ML IV SCH (09:51)
[2022-01-20] MEDS: LEVALBUTEROL 1.25 MG/3 ML NEB RESP TX SCH ×4 (11:23→23:45)
[2022-01-20] MEDS: LATANOPROST 0.005% OPH SOLN 2.5 ML BOTTLE BOTH EYES SCH (20:24)
[2022-01-21] MEDS: PANTOPRAZOLE 40 MG TABLET PO SCH ×2 (00:12→05:44)
[2022-01-21] MEDS: LEVOTHYROXINE 50 MCG TABLET PO SCH ×2 (00:12→05:44)
[2022-01-21] MEDS: INSULIN REGULAR 100 UNIT/ML SUBCUT SCH ×2 (00:15→05:46)
[2022-01-21] MEDS: LEVALBUTEROL 1.25 MG/3 ML NEB RESP TX SCH ×3 (04:40→11:27)
[2022-01-21] MEDS: methylPREDNISolone SOD SUC 40 MG/1 ML VIAL IV SCH (05:48)
[2022-01-21 06:03] LABS: Basophils % 0.1 % (0.0-0.8); Hematocrit 35.7 VOL% (42.0-52.0); Hemoglobin 11.5 GM/DL (14.0-18.0); Immature Granulocytes % 0.7 %; Immature Granulocytes Absolute 0.06 #; Lymphocytes # 0.6 10*3/uL (1.4-4.0); Lymphocytes % 6.4 % (21.2-54.2); Mean Corpuscular HGB Conc 32.2 GM/DL (32-36); Mean Corpuscular Volume 96.7 FL (87-102); Monocytes % 6.8 % (1.7-12.7); Platelet Count 277 T/CUMM (130-400); Red Blood Count 3.69 MC/CUMM (3.8-5.5); Red Cell Distribution Width 14.5 % (9.3-17.3); White Blood Count 8.8 T/CUMM (4-12)
[2022-01-21 06:26] LABS: Calcium 9.1 MG/DL (8.5-10.1); Potassium 4.4 MMOL/L (3.5-5.1)
[2022-01-21] MEDS: FLUTICASONE 50 MCG NASAL SPRAY 16 GM BOTTLE BOTH NARES SCH (09:49)
[2022-01-21] MEDS: FERROUS SULFATE 325 MG TABLET PO SCH (09:49)
[2022-01-21] MEDS: PIOGLITAZONE 15 MG TABLET PO SCH (09:49)
[2022-01-21] MEDS: POTASSIUM CHLORIDE 10 MEQ TABLET PO SCH (09:50)
[2022-01-21] MEDS: DOCUSATE SODIUM 100 MG CAPSULE PO SCH (09:50)
[2022-01-21] MEDS: DILTIAZEM CD 120 MG CAPSULE PO SCH (09:50)
[2022-01-21] MEDS: FUROSEMIDE 40 MG TABLET PO SCH (09:50)
[2022-01-21] MEDS: RIVAROXABAN 20 MG TABLET PO SCH (09:50)
[2022-01-21] MEDS: METOPROLOL SUCCINATE XL 100 MG TABLET PO SCH (09:50)
[2022-01-21] MEDS: ATORVASTATIN 40 MG TABLET PO SCH (09:51)
[2022-01-21] MEDS: cefTRIAXone 1,000 MG in SODIUM CHLORIDE 0.9% 100 ML IV SCH (10:06)
[2022-01-21 13:03] VITALS: BP 150/93
== END 2022-01-21 13:20 | disposition home or self-care (01) ==
LOC: N.ED 00:31 → N.EDINP 00:31 → N.5E 05:17
PROVIDERS: ADMIT Family Medicine; ATTEND Family Medicine

== ENCOUNTER 2022-05-23 15:19 | Inpatient (IN) ==
[2022-05-23 16:32] LABS: Basophils % 0.5 % (0.0-0.8); Eosinophils # 0.2 10*3/uL (0.0-0.87); Eosinophils % 3.2 % (0.00-10.9); Hematocrit 40.8 VOL% (42.0-52.0); Hemoglobin 13.9 GM/DL (14.0-18.0); Immature Granulocytes % 0.3 %; Immature Granulocytes Absolute 0.02 #; Lymphocytes # 1.3 10*3/uL (1.4-4.0); Lymphocytes % 17.1 % (21.2-54.2); Mean Corpuscular HGB Conc 34.1 GM/DL (32-36); Mean Corpuscular Volume 89.1 FL (87-102); Mean Platelet Volume 10.3 FL (9.6-12.0); Monocytes # 0.6 10*3/uL (0.11-0.8); Monocytes % 8.1 % (1.7-12.7); Neutrophils % 70.8 % (38.7-73.9); Platelet Count 232 T/CUMM (130-400); Red Blood Count 4.58 MC/CUMM (3.8-5.5); Red Cell Distribution Width 14.4 % (9.3-17.3); White Blood Count 7.4 T/CUMM (4-12)
[2022-05-23 17:09] LABS: Albumin 3.9 G/DL (3.4-5.0); Bilirubin,Total 0.8 MG/DL (0.20-1.00); Calcium 6.5 MG/DL (8.5-10.1); Osmolality,Calculated 271.1 MOS/KG (273-304); Potassium 2.7 MMOL/L (3.5-5.1); Total Protein 7.1 G/DL (6.4-8.2)
[2022-05-23 19:21] LABS: Bilirubin,Urine Negative (Negative); Blood, Urine Negative (Negative); Glucose,Urine (UA) Negative (Negative); Ketones,Urine Negative (Negative); Nitrite,Urine Negative (Negative); Protein,Urine Negative (Negative); Urine Appearance Clear (Clear); Urine Color Yellow (Yellow); Urine Urobilinogen 0.2 eU/dL (<2.0)
[2022-05-23 19:30] LABS: Bacteria,Urine Occasional /HPF (Few); Squamous Epithelial Cell,Urine Occasional /HPF (0-10)
[2022-05-23] MEDS ORDERED: POTASSIUM CHLORIDE 20 MEQ TABLET PO STA (19:44)
[2022-05-23] MEDS ORDERED: MAGNESIUM SULF RIDER 2 GM/50 ML PREMIX IV STA (19:44)
[2022-05-23] MEDS ORDERED: CALCIUM GLUCONATE RIDER 1,000 MG/50 ML PREMIX IV ONE (19:44)
[2022-05-23] MEDS ORDERED: SODIUM CHLORIDE 0.9% 1,000 ML IV STA (19:57)
[2022-05-23 22:06] LABS: Parathyroid Hormone Intact 47.9 PG/ML (18.4-80.1)
[2022-05-23] MEDS ORDERED: ACETAMINOPHEN 325 MG TABLET PO PRN (22:35)
[2022-05-23] MEDS ORDERED: ONDANSETRON 4 MG/2 ML VIAL IV PRN (22:35)
[2022-05-23] MEDS ORDERED: GLUCAGON 1 MG VIAL IM PRN (22:35)
[2022-05-23] MEDS ORDERED: DEXTROSE 10% 250 ML BAG IV PRN (22:50)
[2022-05-23] MEDS: INSULIN REGULAR 100 UNIT/ML SUBCUT SCH (23:53)
[2022-05-23] MEDS: SODIUM CHLORIDE 0.9% 1,000 ML IV SCH (23:53)
[2022-05-23] MEDS: DOCUSATE SODIUM 100 MG CAPSULE PO SCH (23:54)
[2022-05-24 05:07] LABS: Calcium 6.3 MG/DL (8.5-10.1); Osmolality,Calculated 280.3 MOS/KG (273-304); Potassium 2.8 MMOL/L (3.5-5.1)
[2022-05-24] MEDS ORDERED: POTASSIUM CHLORIDE 20 MEQ TABLET PO PRN (06:44)
[2022-05-24] MEDS ORDERED: MAGNESIUM SULF RIDER 4 GM/100 ML PREMIX IV STA (07:51)
[2022-05-24] MEDS: ATORVASTATIN 40 MG TABLET PO SCH (08:41)
[2022-05-24] MEDS: METOPROLOL SUCCINATE XL 100 MG TABLET PO SCH (08:41)
[2022-05-24] MEDS: DOCUSATE SODIUM 100 MG CAPSULE PO SCH ×2 (08:41→21:35)
[2022-05-24] MEDS: PIOGLITAZONE 15 MG TABLET PO SCH (08:41)
[2022-05-24] MEDS: PANTOPRAZOLE 40 MG TABLET PO SCH (08:41)
[2022-05-24] MEDS: RIVAROXABAN 20 MG TABLET PO SCH (08:41)
[2022-05-24] MEDS: FLUTICASONE 50 MCG NASAL SPRAY 16 GM BOTTLE BOTH NARES SCH (08:42)
[2022-05-24 10:38] LABS: Calcium 6.6 MG/DL (8.5-10.1); Osmolality,Calculated 280.4 MOS/KG (273-304); Potassium 3.6 MMOL/L (3.5-5.1)
[2022-05-24] MEDS: ALBUTEROL/IPRATROPIUM 3 ML NEB RESP TX SCH ×5 (11:20→23:49)
[2022-05-24] MEDS: INSULIN REGULAR 100 UNIT/ML SUBCUT SCH ×4 (12:26→21:36)
[2022-05-24] MEDS: MAGNESIUM OXIDE 400 MG TABLET PO SCH (21:35)
[2022-05-24] MEDS: LATANOPROST 0.005% OPH SOLN 2.5 ML BOTTLE BOTH EYES SCH (21:40)
[2022-05-25] MEDS: SODIUM CHLORIDE 0.9% 1,000 ML IV SCH ×4 (02:17→17:03)
[2022-05-25 04:30] LABS: Calcium 6.6 MG/DL (8.5-10.1); Osmolality,Calculated 275.7 MOS/KG (273-304); Potassium 2.6 MMOL/L (3.5-5.1)
[2022-05-25] MEDS: ALBUTEROL/IPRATROPIUM 3 ML NEB RESP TX SCH ×6 (04:59→23:57)
[2022-05-25] MEDS: POTASSIUM CHLORIDE RIDER 10 MEQ/100 ML PREMIX IV PRN ×5 (05:19→16:25)
[2022-05-25] MEDS: PANTOPRAZOLE 40 MG TABLET PO SCH (09:42)
[2022-05-25] MEDS: DOCUSATE SODIUM 100 MG CAPSULE PO SCH ×2 (09:42→21:42)
[2022-05-25] MEDS: CALCIUM CARBONATE CHEW 500 MG TABLET PO SCH ×2 (09:42→21:42)
[2022-05-25] MEDS: RIVAROXABAN 20 MG TABLET PO SCH (09:43)
[2022-05-25] MEDS: ATORVASTATIN 40 MG TABLET PO SCH (09:43)
[2022-05-25] MEDS: MAGNESIUM OXIDE 400 MG TABLET PO SCH ×2 (09:43→21:42)
[2022-05-25] MEDS: LEVOTHYROXINE 50 MCG TABLET PO SCH (09:43)
[2022-05-25] MEDS: PIOGLITAZONE 15 MG TABLET PO SCH (09:43)
[2022-05-25] MEDS: METOPROLOL SUCCINATE XL 100 MG TABLET PO SCH (09:43)
[2022-05-25] MEDS: POTASSIUM CHLORIDE 20 MEQ TABLET PO SCH ×2 (09:43→21:41)
[2022-05-25] MEDS: INSULIN REGULAR 100 UNIT/ML SUBCUT SCH ×4 (09:47→21:42)
[2022-05-25] MEDS: FLUTICASONE 50 MCG NASAL SPRAY 16 GM BOTTLE BOTH NARES SCH (09:50)
[2022-05-25] MEDS: LATANOPROST 0.005% OPH SOLN 2.5 ML BOTTLE BOTH EYES SCH (21:42)
[2022-05-26] MEDS: SODIUM CHLORIDE 0.9% 1,000 ML IV SCH ×3 (01:50→21:37)
[2022-05-26 05:08] LABS: Calcium 6.2 MG/DL (8.5-10.1); Osmolality,Calculated 280.3 MOS/KG (273-304); Potassium 3.7 MMOL/L (3.5-5.1)
[2022-05-26] MEDS ORDERED: MAGNESIUM SULF RIDER 2 GM/50 ML PREMIX IV STA (05:13)
[2022-05-26] MEDS: ALBUTEROL/IPRATROPIUM 3 ML NEB RESP TX SCH ×5 (07:15→23:50)
[2022-05-26] MEDS: PIOGLITAZONE 15 MG TABLET PO SCH (08:56)
[2022-05-26] MEDS: POTASSIUM CHLORIDE 20 MEQ TABLET PO SCH ×2 (08:56→21:36)
[2022-05-26] MEDS: PANTOPRAZOLE 40 MG TABLET PO SCH (08:56)
[2022-05-26] MEDS: MAGNESIUM OXIDE 400 MG TABLET PO SCH ×2 (08:56→21:36)
[2022-05-26] MEDS: METOPROLOL SUCCINATE XL 100 MG TABLET PO SCH (08:56)
[2022-05-26] MEDS: ATORVASTATIN 40 MG TABLET PO SCH (08:57)
[2022-05-26] MEDS: DOCUSATE SODIUM 100 MG CAPSULE PO SCH ×2 (08:57→21:35)
[2022-05-26] MEDS: RIVAROXABAN 20 MG TABLET PO SCH (08:57)
[2022-05-26] MEDS: INSULIN REGULAR 100 UNIT/ML SUBCUT SCH ×4 (09:15→21:35)
[2022-05-26] MEDS: FLUTICASONE 50 MCG NASAL SPRAY 16 GM BOTTLE BOTH NARES SCH (11:21)
[2022-05-26] MEDS: CALCIUM CARBONATE CHEW 500 MG TABLET PO SCH ×2 (12:44→21:36)
[2022-05-26] MEDS: LEVOTHYROXINE 50 MCG TABLET PO SCH (12:46)
[2022-05-26] MEDS: LATANOPROST 0.005% OPH SOLN 2.5 ML BOTTLE BOTH EYES SCH (21:38)
[2022-05-27] MEDS: ALBUTEROL/IPRATROPIUM 3 ML NEB RESP TX SCH ×6 (03:18→23:30)
[2022-05-27] MEDS: SODIUM CHLORIDE 0.9% 1,000 ML IV SCH ×4 (05:47→21:47)
[2022-05-27] MEDS: LEVOTHYROXINE 50 MCG TABLET PO SCH (06:11)
[2022-05-27] MEDS ORDERED: MAGNESIUM SULF RIDER 2 GM/50 ML PREMIX IV PRN (07:55)
[2022-05-27] MEDS: INSULIN REGULAR 100 UNIT/ML SUBCUT SCH ×4 (09:24→21:46)
[2022-05-27] MEDS: CALCIUM CARBONATE CHEW 500 MG TABLET PO SCH ×2 (09:48→21:39)
[2022-05-27] MEDS: FLUTICASONE 50 MCG NASAL SPRAY 16 GM BOTTLE BOTH NARES SCH (09:48)
[2022-05-27] MEDS: METOPROLOL SUCCINATE XL 100 MG TABLET PO SCH (09:48)
[2022-05-27] MEDS: MAGNESIUM OXIDE 400 MG TABLET PO SCH ×2 (09:48→21:39)
[2022-05-27] MEDS: DOCUSATE SODIUM 100 MG CAPSULE PO SCH ×2 (09:48→21:40)
[2022-05-27] MEDS: RIVAROXABAN 20 MG TABLET PO SCH (09:49)
[2022-05-27] MEDS: POTASSIUM CHLORIDE 20 MEQ TABLET PO SCH ×2 (09:49→21:39)
[2022-05-27] MEDS: ATORVASTATIN 40 MG TABLET PO SCH (09:49)
[2022-05-27] MEDS: PIOGLITAZONE 15 MG TABLET PO SCH (09:49)
[2022-05-27] MEDS: PANTOPRAZOLE 40 MG TABLET PO SCH (11:51)
[2022-05-27] MEDS: FAMOTIDINE 20 MG TABLET PO SCH (21:40)
[2022-05-27] MEDS: LATANOPROST 0.005% OPH SOLN 2.5 ML BOTTLE BOTH EYES SCH (21:58)
[2022-05-28] MEDS: SODIUM CHLORIDE 0.9% 1,000 ML IV SCH (05:31)
[2022-05-28] MEDS: ALBUTEROL/IPRATROPIUM 3 ML NEB RESP TX SCH ×6 (07:08→19:53)
[2022-05-28 08:28] LABS: Calcium 8.9 MG/DL (8.5-10.1); Osmolality,Calculated 267.1 MOS/KG (273-304); Potassium 5.2 MMOL/L (3.5-5.1)
[2022-05-28] MEDS: LEVOTHYROXINE 50 MCG TABLET PO SCH (08:56)
[2022-05-28] MEDS: FLUTICASONE 50 MCG NASAL SPRAY 16 GM BOTTLE BOTH NARES SCH (08:56)
[2022-05-28] MEDS: DOCUSATE SODIUM 100 MG CAPSULE PO SCH ×2 (08:57→20:14)
[2022-05-28] MEDS: CALCIUM CARBONATE CHEW 500 MG TABLET PO SCH ×2 (08:57→20:14)
[2022-05-28] MEDS: PIOGLITAZONE 15 MG TABLET PO SCH (08:57)
[2022-05-28] MEDS: ATORVASTATIN 40 MG TABLET PO SCH (08:57)
[2022-05-28] MEDS: RIVAROXABAN 20 MG TABLET PO SCH (08:57)
[2022-05-28] MEDS: MAGNESIUM OXIDE 400 MG TABLET PO SCH ×2 (08:58→20:14)
[2022-05-28] MEDS: METOPROLOL SUCCINATE XL 100 MG TABLET PO SCH (08:58)
[2022-05-28] MEDS: INSULIN REGULAR 100 UNIT/ML SUBCUT SCH ×4 (08:58→20:14)
[2022-05-28] MEDS: POTASSIUM CHLORIDE 20 MEQ TABLET PO SCH ×2 (09:00→20:14)
[2022-05-28] MEDS ORDERED: amLODIPine 10 MG TABLET PO SCH (16:30)
[2022-05-28] MEDS: LATANOPROST 0.005% OPH SOLN 2.5 ML BOTTLE BOTH EYES SCH (20:14)
[2022-05-28] MEDS: FAMOTIDINE 20 MG TABLET PO SCH (20:14)
[2022-05-29] MEDS: ALBUTEROL/IPRATROPIUM 3 ML NEB RESP TX SCH ×5 (01:06→19:46)
[2022-05-29] MEDS ORDERED: amLODIPine 5 MG TABLET PO SCH (09:00)
[2022-05-29] MEDS: POTASSIUM CHLORIDE 20 MEQ TABLET PO SCH ×2 (09:15→21:28)
[2022-05-29] MEDS: MAGNESIUM OXIDE 400 MG TABLET PO SCH ×2 (09:15→21:28)
[2022-05-29] MEDS: PIOGLITAZONE 15 MG TABLET PO SCH (09:15)
[2022-05-29] MEDS: CALCIUM CARBONATE CHEW 500 MG TABLET PO SCH ×2 (09:15→21:29)
[2022-05-29] MEDS: LEVOTHYROXINE 50 MCG TABLET PO SCH (09:16)
[2022-05-29] MEDS: FUROSEMIDE 20 MG TABLET PO SCH (09:16)
[2022-05-29] MEDS: RIVAROXABAN 20 MG TABLET PO SCH (09:16)
[2022-05-29] MEDS: DOCUSATE SODIUM 100 MG CAPSULE PO SCH ×2 (09:16→21:28)
[2022-05-29] MEDS: INSULIN REGULAR 100 UNIT/ML SUBCUT SCH ×4 (09:16→21:29)
[2022-05-29] MEDS: ATORVASTATIN 40 MG TABLET PO SCH (09:16)
[2022-05-29] MEDS: FLUTICASONE 50 MCG NASAL SPRAY 16 GM BOTTLE BOTH NARES SCH (09:17)
[2022-05-29] MEDS: METOPROLOL SUCCINATE XL 100 MG TABLET PO SCH (09:25)
[2022-05-29] MEDS ORDERED: hydrALAZINE 20 MG/1 ML VIAL IV PRN (16:14)
[2022-05-29] MEDS: FAMOTIDINE 20 MG TABLET PO SCH (21:28)
[2022-05-29] MEDS: LATANOPROST 0.005% OPH SOLN 2.5 ML BOTTLE BOTH EYES SCH (21:44)
[2022-05-30] MEDS: ALBUTEROL/IPRATROPIUM 3 ML NEB RESP TX SCH ×6 (00:20→19:57)
[2022-05-30] MEDS: LEVOTHYROXINE 50 MCG TABLET PO SCH (06:32)
[2022-05-30 08:07] LABS: Calcium 10.3 MG/DL (8.5-10.1); Osmolality,Calculated 265.4 MOS/KG (273-304)
[2022-05-30] MEDS: RIVAROXABAN 20 MG TABLET PO SCH (09:19)
[2022-05-30] MEDS: METOPROLOL SUCCINATE XL 100 MG TABLET PO SCH (09:19)
[2022-05-30] MEDS: POTASSIUM CHLORIDE 20 MEQ TABLET PO SCH ×2 (09:19→21:14)
[2022-05-30] MEDS: FUROSEMIDE 20 MG TABLET PO SCH (09:19)
[2022-05-30] MEDS: DOCUSATE SODIUM 100 MG CAPSULE PO SCH ×2 (09:19→21:14)
[2022-05-30] MEDS: MAGNESIUM OXIDE 400 MG TABLET PO SCH ×2 (09:19→21:14)
[2022-05-30] MEDS: ATORVASTATIN 40 MG TABLET PO SCH (09:19)
[2022-05-30] MEDS: DILTIAZEM CD 120 MG CAPSULE PO SCH (09:19)
[2022-05-30] MEDS: INSULIN REGULAR 100 UNIT/ML SUBCUT SCH ×4 (09:20→21:44)
[2022-05-30] MEDS: SODIUM CHLORIDE 0.9% 1,000 ML IV SCH ×2 (09:20→21:56)
[2022-05-30] MEDS: CALCIUM CARBONATE CHEW 500 MG TABLET PO SCH ×2 (09:20→21:14)
[2022-05-30] MEDS: FLUTICASONE 50 MCG NASAL SPRAY 16 GM BOTTLE BOTH NARES SCH (09:20)
[2022-05-30] MEDS: PIOGLITAZONE 15 MG TABLET PO SCH (09:24)
[2022-05-30] MEDS: LATANOPROST 0.005% OPH SOLN 2.5 ML BOTTLE BOTH EYES SCH (21:43)
[2022-05-31] MEDS: ALBUTEROL/IPRATROPIUM 3 ML NEB RESP TX SCH ×7 (00:41→23:20)
[2022-05-31] MEDS: SODIUM CHLORIDE 0.9% 1,000 ML IV SCH ×2 (02:35→11:33)
[2022-05-31 05:07] LABS: Basophils # 0.1 10*3/uL (0.0-0.2); Basophils % 0.8 % (0.0-0.8); Eosinophils # 0.4 10*3/uL (0.0-0.87); Eosinophils % 7.2 % (0.00-10.9); Hemoglobin 11.9 GM/DL (14.0-18.0); Immature Granulocytes % 0.3 %; Immature Granulocytes Absolute 0.02 #; Lymphocytes # 0.9 10*3/uL (1.4-4.0); Lymphocytes % 14.2 % (21.2-54.2); Mean Corpuscular HGB Conc 33.1 GM/DL (32-36); Mean Corpuscular Volume 91.8 FL (87-102); Mean Platelet Volume 10.4 FL (9.6-12.0); Monocytes # 0.6 10*3/uL (0.11-0.8); Neutrophils % 67.5 % (38.7-73.9); Platelet Count 228 T/CUMM (130-400); Red Blood Count 3.92 MC/CUMM (3.8-5.5); Red Cell Distribution Width 14.6 % (9.3-17.3); White Blood Count 6.1 T/CUMM (4-12)
[2022-05-31 05:42] LABS: Osmolality,Calculated 268.2 MOS/KG (273-304); Potassium 4.5 MMOL/L (3.5-5.1)
[2022-05-31] MEDS: LEVOTHYROXINE 50 MCG TABLET PO SCH (06:26)
[2022-05-31] MEDS: DOCUSATE SODIUM 100 MG CAPSULE PO SCH ×2 (09:06→21:25)
[2022-05-31] MEDS: MAGNESIUM OXIDE 400 MG TABLET PO SCH ×2 (09:06→21:25)
[2022-05-31] MEDS: POTASSIUM CHLORIDE 20 MEQ TABLET PO SCH ×2 (09:07→21:25)
[2022-05-31] MEDS: CALCIUM CARBONATE CHEW 500 MG TABLET PO SCH ×2 (09:07→21:25)
[2022-05-31] MEDS: ATORVASTATIN 40 MG TABLET PO SCH (09:07)
[2022-05-31] MEDS: RIVAROXABAN 20 MG TABLET PO SCH (09:07)
[2022-05-31] MEDS: DILTIAZEM CD 120 MG CAPSULE PO SCH (09:07)
[2022-05-31] MEDS: METOPROLOL SUCCINATE XL 100 MG TABLET PO SCH (09:07)
[2022-05-31] MEDS: FLUTICASONE 50 MCG NASAL SPRAY 16 GM BOTTLE BOTH NARES SCH (09:10)
[2022-05-31] MEDS: INSULIN REGULAR 100 UNIT/ML SUBCUT SCH ×4 (09:20→21:26)
[2022-05-31] MEDS: PIOGLITAZONE 15 MG TABLET PO SCH (09:20)
[2022-05-31] MEDS: LATANOPROST 0.005% OPH SOLN 2.5 ML BOTTLE BOTH EYES SCH (21:26)
[2022-06-01] MEDS: ALBUTEROL/IPRATROPIUM 3 ML NEB RESP TX SCH ×4 (02:52→10:40)
[2022-06-01 05:03] LABS: Basophils # 0.1 10*3/uL (0.0-0.2); Basophils % 0.8 % (0.0-0.8); Eosinophils # 0.4 10*3/uL (0.0-0.87); Eosinophils % 6.2 % (0.00-10.9); Hematocrit 37.3 VOL% (42.0-52.0); Hemoglobin 12.2 GM/DL (14.0-18.0); Immature Granulocytes % 0.3 %; Immature Granulocytes Absolute 0.02 #; Lymphocytes % 14.3 % (21.2-54.2); Mean Corpuscular HGB Conc 32.7 GM/DL (32-36); Mean Corpuscular Volume 92.1 FL (87-102); Mean Platelet Volume 10.5 FL (9.6-12.0); Monocytes # 0.7 10*3/uL (0.11-0.8); Monocytes % 9.7 % (1.7-12.7); Neutrophils % 68.7 % (38.7-73.9); Platelet Count 268 T/CUMM (130-400); Red Blood Count 4.05 MC/CUMM (3.8-5.5); Red Cell Distribution Width 14.5 % (9.3-17.3); White Blood Count 7.1 T/CUMM (4-12)
[2022-06-01 05:23] LABS: Calcium 10.3 MG/DL (8.5-10.1); Osmolality,Calculated 266.4 MOS/KG (273-304)
[2022-06-01] MEDS: LEVOTHYROXINE 50 MCG TABLET PO SCH (06:00)
[2022-06-01] MEDS: INSULIN REGULAR 100 UNIT/ML SUBCUT SCH ×2 (07:16→11:58)
[2022-06-01 08:18] VITALS: BP 148/74
[2022-06-01] MEDS: POTASSIUM CHLORIDE 20 MEQ TABLET PO SCH (08:49)
[2022-06-01] MEDS: PIOGLITAZONE 15 MG TABLET PO SCH (08:49)
[2022-06-01] MEDS: CALCIUM CARBONATE CHEW 500 MG TABLET PO SCH (08:49)
[2022-06-01] MEDS: METOPROLOL SUCCINATE XL 100 MG TABLET PO SCH (08:49)
[2022-06-01] MEDS: ATORVASTATIN 40 MG TABLET PO SCH (08:49)
[2022-06-01] MEDS: MAGNESIUM OXIDE 400 MG TABLET PO SCH (08:49)
[2022-06-01] MEDS: DILTIAZEM CD 120 MG CAPSULE PO SCH (08:50)
[2022-06-01] MEDS: DOCUSATE SODIUM 100 MG CAPSULE PO SCH (08:50)
[2022-06-01] MEDS: RIVAROXABAN 20 MG TABLET PO SCH (08:50)
[2022-06-01] MEDS: FLUTICASONE 50 MCG NASAL SPRAY 16 GM BOTTLE BOTH NARES SCH (08:54)
== END 2022-06-01 13:20 | disposition swing bed (61) | DRG 641 ==
LOC: N.ED 15:19 → N.EDINP 20:13 → N.TELEN 22:52
PROVIDERS: ADMIT Family Medicine; ATTEND Family Medicine

== ENCOUNTER 2022-10-04 05:19 | Observation (INO) ==
[2022-10-04] MEDS ORDERED: methylPREDNISolone SOD SUC 125 MG/2 ML VIAL IV STA (05:36)
[2022-10-04] MEDS ORDERED: ONDANSETRON 4 MG/2 ML VIAL IV STA (05:36)
[2022-10-04] MEDS ORDERED: ALBUTEROL/IPRATROPIUM 3 ML NEB RESP TX STA (05:36)
[2022-10-04 05:45] LABS: Basophils % 0.3 % (0.0-0.8); Eosinophils # 0.2 10*3/uL (0.0-0.87); Eosinophils % 1.2 % (0.00-10.9); Hematocrit 35.5 VOL% (42.0-52.0); Hemoglobin 11.7 GM/DL (14.0-18.0); Immature Granulocytes % 0.4 %; Immature Granulocytes Absolute 0.05 #; Lymphocytes # 0.8 10*3/uL (1.4-4.0); Lymphocytes % 5.8 % (21.2-54.2); Mean Corpuscular Volume 96.5 FL (87-102); Mean Platelet Volume 10.2 FL (9.6-12.0); Monocytes # 0.6 10*3/uL (0.11-0.8); Monocytes % 4.2 % (1.7-12.7); Neutrophils % 88.1 % (38.7-73.9); Platelet Count 256 T/CUMM (130-400); Red Blood Count 3.68 MC/CUMM (3.8-5.5); White Blood Count 13.6 T/CUMM (4-12)
[2022-10-04 05:54] LABS: INR 1.2; PT Patient Result 12.8 SECS (10.1-12.1)
[2022-10-04 06:10] LABS: Albumin 3.7 G/DL (3.4-5.0); Bilirubin,Total 0.5 MG/DL (0.20-1.00); Calcium 9.2 MG/DL (8.5-10.1); Osmolality,Calculated 278.7 MOS/KG (273-304); Potassium 4.5 MMOL/L (3.5-5.1); Total Protein 6.5 G/DL (6.4-8.2)
[2022-10-04] MEDS ORDERED: LEVOFLOXACIN INJ 500 MG/100 ML PREMIX IV STA (06:43)
[2022-10-04] MEDS ORDERED: SODIUM CHLORIDE 0.9% 2,650 ML IV ONE (06:49)
[2022-10-04] MEDS ORDERED: ACETAMINOPHEN 325 MG TABLET PO PRN (07:21)
[2022-10-04] MEDS ORDERED: ONDANSETRON 4 MG/2 ML VIAL IV PRN (07:21)
[2022-10-04 07:23] LABS: Mucus,Urine Occasional /LPF (Occasional); RBC,Urine <1 /HPF (0-4)
[2022-10-04 07:24] LABS: Bilirubin,Urine Negative (Negative); Blood, Urine Negative (Negative); Glucose,Urine (UA) Negative (Negative); Ketones,Urine Negative (Negative); Nitrite,Urine Negative (Negative); Protein,Urine Negative (Negative); Urine Appearance Clear (Clear); Urine Color Yellow (Yellow); Urine Urobilinogen 0.2 eU/dL (<2.0); Urine pH 6.5 (4.5-8.0)
[2022-10-04] MEDS: ALBUTEROL/IPRATROPIUM 3 ML NEB RESP TX SCH ×5 (08:40→23:06)
[2022-10-04] MEDS ORDERED: DOCUSATE SODIUM 100 MG CAPSULE PO SCH (09:00)
[2022-10-04] MEDS: SODIUM CHLORIDE 0.9% 1,000 ML IV SCH ×2 (09:32→22:57)
[2022-10-04] MEDS: PANTOPRAZOLE 40 MG TABLET PO SCH (09:40)
[2022-10-04] MEDS: PIOGLITAZONE 15 MG TABLET PO SCH (11:16)
[2022-10-04] MEDS: FLUTICASONE 50 MCG NASAL SPRAY 16 GM BOTTLE BOTH NARES SCH (11:16)
[2022-10-04] MEDS: POTASSIUM CHLORIDE 20 MEQ TABLET PO SCH ×2 (11:16→20:37)
[2022-10-04] MEDS: DOCUSATE SODIUM 100 MG CAPSULE PO SCH ×2 (11:16→20:36)
[2022-10-04] MEDS: FUROSEMIDE 20 MG TABLET PO SCH (11:16)
[2022-10-04] MEDS: DILTIAZEM CD 120 MG CAPSULE PO SCH (11:16)
[2022-10-04] MEDS: MAGNESIUM OXIDE 400 MG TABLET PO SCH ×2 (11:17→20:36)
[2022-10-04] MEDS: RIVAROXABAN 20 MG TABLET PO SCH (11:17)
[2022-10-04] MEDS: METOPROLOL SUCCINATE XL 100 MG TABLET PO SCH (11:17)
[2022-10-04] MEDS: CALCIUM CARBONATE CHEW 500 MG TABLET PO SCH ×2 (11:17→20:37)
[2022-10-04] MEDS: LEVOTHYROXINE 50 MCG TABLET PO SCH (11:17)
[2022-10-04] MEDS ORDERED: LACTATED RINGERS 1,000 ML IV ONE (11:56)
[2022-10-04] MEDS: cefTRIAXone 1,000 MG in SODIUM CHLORIDE 0.9% 100 ML IV SCH (17:46)
[2022-10-04] MEDS: ATORVASTATIN 40 MG TABLET PO SCH (20:37)
[2022-10-04] MEDS: LATANOPROST 0.005% OPH SOLN 2.5 ML BOTTLE BOTH EYES SCH (20:37)
[2022-10-05 02:19] LABS: Basophils % 0.1 % (0.0-0.8); Hematocrit 29.6 VOL% (42.0-52.0); Hemoglobin 9.5 GM/DL (14.0-18.0); Immature Granulocytes % 0.8 %; Lymphocytes # 0.4 10*3/uL (1.4-4.0); Lymphocytes % 3.6 % (21.2-54.2); Mean Corpuscular HGB Conc 32.1 GM/DL (32-36); Mean Corpuscular Volume 97.4 FL (87-102); Mean Platelet Volume 10.3 FL (9.6-12.0); Monocytes # 0.6 10*3/uL (0.11-0.8); Monocytes % 4.6 % (1.7-12.7); Neutrophils % 90.9 % (38.7-73.9); Platelet Count 185 T/CUMM (130-400); Red Blood Count 3.04 MC/CUMM (3.8-5.5); Red Cell Distribution Width 14.4 % (9.3-17.3); White Blood Count 12.3 T/CUMM (4-12)
[2022-10-05 02:42] LABS: Calcium 8.3 MG/DL (8.5-10.1); Osmolality,Calculated 280.8 MOS/KG (273-304); Potassium 4.7 MMOL/L (3.5-5.1)
[2022-10-05 02:59] LABS: Lymphocytes 4 % (20-55); Platelet Estimate Adequate; Total Cells Counted 100
[2022-10-05] MEDS: ALBUTEROL/IPRATROPIUM 3 ML NEB RESP TX SCH ×6 (03:32→23:40)
[2022-10-05] MEDS: LEVOTHYROXINE 50 MCG TABLET PO SCH (05:44)
[2022-10-05] MEDS: SODIUM CHLORIDE 0.9% 1,000 ML IV SCH (06:51)
[2022-10-05] MEDS: MAGNESIUM OXIDE 400 MG TABLET PO SCH ×2 (09:58→21:37)
[2022-10-05] MEDS: PIOGLITAZONE 15 MG TABLET PO SCH (09:58)
[2022-10-05] MEDS: DILTIAZEM CD 120 MG CAPSULE PO SCH (09:58)
[2022-10-05] MEDS: DOCUSATE SODIUM 100 MG CAPSULE PO SCH ×2 (09:58→21:37)
[2022-10-05] MEDS: CALCIUM CARBONATE CHEW 500 MG TABLET PO SCH ×2 (09:58→21:36)
[2022-10-05] MEDS: PANTOPRAZOLE 40 MG TABLET PO SCH (09:58)
[2022-10-05] MEDS: FUROSEMIDE 20 MG TABLET PO SCH (09:58)
[2022-10-05] MEDS: METOPROLOL SUCCINATE XL 100 MG TABLET PO SCH (09:59)
[2022-10-05] MEDS: POTASSIUM CHLORIDE 20 MEQ TABLET PO SCH ×2 (09:59→21:37)
[2022-10-05] MEDS: FLUTICASONE 50 MCG NASAL SPRAY 16 GM BOTTLE BOTH NARES SCH (09:59)
[2022-10-05] MEDS: RIVAROXABAN 20 MG TABLET PO SCH (09:59)
[2022-10-05] MEDS: LEVOFLOXACIN INJ 500 MG/100 ML PREMIX IV SCH (09:59)
[2022-10-05] MEDS: cefTRIAXone 1,000 MG in SODIUM CHLORIDE 0.9% 100 ML IV SCH (17:00)
[2022-10-05] MEDS: ATORVASTATIN 40 MG TABLET PO SCH (21:37)
[2022-10-05] MEDS: LATANOPROST 0.005% OPH SOLN 2.5 ML BOTTLE BOTH EYES SCH (21:38)
[2022-10-06] MEDS: ALBUTEROL/IPRATROPIUM 3 ML NEB RESP TX SCH ×2 (02:30→07:01)
[2022-10-06] MEDS: LEVOTHYROXINE 50 MCG TABLET PO SCH (05:10)
[2022-10-06 07:42] VITALS: BP 144/91
[2022-10-06] MEDS: LEVOFLOXACIN INJ 500 MG/100 ML PREMIX IV SCH (08:29)
[2022-10-06] MEDS: METOPROLOL SUCCINATE XL 100 MG TABLET PO SCH (08:30)
[2022-10-06] MEDS: POTASSIUM CHLORIDE 20 MEQ TABLET PO SCH (08:30)
[2022-10-06] MEDS: PIOGLITAZONE 15 MG TABLET PO SCH (08:30)
[2022-10-06] MEDS: FUROSEMIDE 20 MG TABLET PO SCH (08:30)
[2022-10-06] MEDS: DILTIAZEM CD 120 MG CAPSULE PO SCH (08:30)
[2022-10-06] MEDS: PANTOPRAZOLE 40 MG TABLET PO SCH (08:30)
[2022-10-06] MEDS: DOCUSATE SODIUM 100 MG CAPSULE PO SCH (08:30)
[2022-10-06] MEDS: CALCIUM CARBONATE CHEW 500 MG TABLET PO SCH (08:30)
[2022-10-06] MEDS: MAGNESIUM OXIDE 400 MG TABLET PO SCH (08:30)
[2022-10-06] MEDS: RIVAROXABAN 20 MG TABLET PO SCH (08:30)
[2022-10-06] MEDS: FLUTICASONE 50 MCG NASAL SPRAY 16 GM BOTTLE BOTH NARES SCH (08:31)
== END 2022-10-06 10:52 | disposition home or self-care (01) ==
LOC: N.EDINP 05:19 → N.ED 05:19 → N.2E 11:39
PROVIDERS: ADMIT Family Medicine; ATTEND Family Medicine